=== PATIENT | male | born 1980 | race African-American/Black ===

== ENCOUNTER 2017-04-06 17:52 | Emergency (ER) | payer OTHER ==
--- NOTE | 2017-04-06 18:34 | ED Physician Chart ---
Chief Complaint/HPI - Patient Information Date Seen:: 04/06/17 Time Seen:: 18:20 Chief Complaint:: right foot pain History of Present Illness:: Patient's had right foot pain since yesterday. Five days ago patient finished a ten-day course of Augmentin 875 mg twice a day for infected abrasions of the right calf. Patient's had no chills or fever. Allergies:: Allergies Allergy/AdvReac Type Severity Reaction Status Date / Time No Known Allergies Allergy Verified 04/06/17 18:17 Vitals:: Vital Signs - 8 hr 04/06/17 18:17 Temp 98.4 F HR 76 RR 16 BP 159/106 O2 Sat % 98 Historian:: Patient Review:: Nurse's Note Reviewed Review of Systems - Review of Systems General/Constitutional: No fever, No chills Head: No headache Eyes: No loss of vision ENT: No earache Neck: No neck pain Cardio Vascular: No chest pain, No palpitations Pulmonary: No SOB GI: No nausea, No vomiting, No diarrhea G/U: No dysuria Musculoskeletal: No bone or joint pain, No muscle pain Endocrine: No polyuria, Polydipsia Psychiatric: No prior psych history, No depression Hematopoietic: No bruising Allergic/Immuno: No urticaria Neurological: No syncope, No focal symptoms Past Medical History - Past Medical History Past Medical History: No significant medical hx Family History: Diabetes Melitus, HTN Social History: Non Smoker, Alcohol (slight alcohol use) Surgical History: None Psychiatricy History: None Medication: Reviewed Family Medical History - Family Member Mother History Unknown: Yes Hx Family Hypertension: Yes Physical Exam - Physical Examination General/Constitutional: Well-developed, well-nourished, Alert, No distress Head: Atraumatic Eyes: Lids, conjuctiva normal Skin: Nl inspection Other Skin comments:: Slight swelling of right foot; skin between toes of right foot right ENMT: External ears, nose nl Neck: No nuchal rigidity Respiratory: Nl effort/Exclusion, Clear to Auscultation Cardio Vascular: RRR, No murmur, gallop, rubs GI: No tenderness/rebounding/guarding, No organomegaly, No hernia, Normal BS's : No CVA tenderness Other Extremities comments:: Mild swelling right foot Neuro/Psych: Alert/oriented, No focal deficits Misc: Normal back ED Septic Shock - . Is Septic Shock (SBP<90, OR Lactate>4 mmol\L) present?: No - <6hrs of presentation: Vital Signs: Vital Signs - 8 hr 04/06/17 18:17 Temp 98.4 F HR 76 RR 16 BP 159/106 O2 Sat % 98 Reassessment (Disposition) - Reassessment Reassessment Condition:: Unchanged - Diagnosis Diagnosis:: Cellulitis right foot; tinea pedis right foot - Aftercare/Follow up Instructions Aftercare/Follow-Up Instructions:: Refer to Discharge Instructions Medication Prescribed:: Plan: Keflex 500 mg 4 times a day for one week; lotrisone 15 gm tube to apply sparingly between toes twice a day - Patient Disposition Discharge/Transfer:: Home Condition at Disposition:: Stable, Unchanged
== END 2017-04-06 19:21 | disposition home or self-care (01) ==
LOC: ER 17:52
DX: L03.115 Cellulitis of right lower limb (principal); B35.3 Tinea pedis
CPT/HCPCS: Z7502